=== PATIENT | female | born 1990 | race Caucasian/White ===

== ENCOUNTER 2018-06-20 04:48 | Inpatient (IN) ==
[2018-06-20] MEDS ORDERED: RINGER'S SOLUTION,LACTATED 1,000 ML IV PRN ×2 (05:30)
[2018-06-20] MEDS ORDERED: OXYTOCIN 20 UNITS in RINGER'S SOLUTION,LACTATED 1,000 ML IV ONE (05:30)
[2018-06-20] MEDS ORDERED: ceFAZolin SODIUM/DEXTROSE,ISO 2 GM/50 ML BAG IV ONE (05:30)
--- NOTE | 2018-06-20 06:53 | ANES ---
Anesthesia Pre Procedure Eval HOME MEDICATIONS [id number] 400 mcg-om3 35 mg-dha 25 mg-epa 5 mg-fish oil chewable tablet 2 tab PO .daily tab 02/14/18 [Last Taken Unknown] ranitidine 150 mg tablet 150 mg PO DAILY 02/14/18 [Last Taken Unknown] ferrous sulfate 325 mg (65 mg iron) tablet 325 mg PO BID tab 03/29/18 [Last Taken Unknown] Allergies/Adverse Reactions: Allergies Allergy/AdvReac Type Severity Reaction Status Date / Time Penicillins Allergy Severe Shortness Verified 06/07/18 15:21 of Breath, hives Sulfa (Sulfonamide AdvReac upset Verified 06/07/18 15:21 Antibiotics) stomach - Planned Procedure Planned Procedure: Repeat , poss. Abdominal Scar Revision Medication List Reviewed:: Yes Allergies Verified: Yes Medical History (Last Reviewed 06/20/18 @ 06:51 by Juan Bee CRNA) Body piercing Headache Onset Date: ~01/14/14 spinal headache after delivery PUPPP (pruritic urticarial papules and plaques of ) Onset Date: ~2013 Tattoos Wears glasses Anemia Onset Date: Unknown on set high school- w/ 11/30/17 Coagulation defect Onset Date: ~03/2013 Heterozygous MTHFR Chorioamnionitis Onset Date: 01/14/14 Surgical History (Last Reviewed 06/20/18 @ 06:51 by Juan Bee CRNA) History of tonsillectomy and adenoidectomy Onset Date: ~2007 Hx laparoscopic cholecystectomy Onset Date: 12/18/15 Previous section Onset Date: 01/14/14 Arrest of dilation, chorioamnionitis Family History (Last Reviewed 06/20/18 @ 06:52 by Juan Bee CRNA) Father Alive and well Mother Hypothyroidism DVT (deep venous thrombosis) Pituitary tumor Hx of vein stripping Grandmother Endometriosis Maternal DVT (deep venous thrombosis) Maternal Kidney transplant recipient maternal Grandmother Hypothyroidism CAD (coronary artery disease) - Family Anesthesia History Family History:: no untoward family reactions to anesthesia, no familial bleeding tendencies, no family history of clotting disorders, no family history of premature - Airway/Neck/Teeth Within Normal Limits:: Yes Teeth Condition: Intact Neck Exam: non-tender, full range of motion, normal alignment Mallampatti Score: 2 Thyromental (T-M) distance: > 6 cm Mandibulo Hyoid distance: > 3 cm - Respiratory Respiratory: chest non-tender, lungs clear Smoking Status: Never smoker Sleep Apnea currently treated: No Sleep Apnea by current assessment: No - Cardiovascular Patient History - Cardiac/Respiratory: No pertinent hx Tolerates Activity: Good Heart Sounds: S1 & S2, Regular - Anesthesia Assessment and Plan ASA Class: PS, II Anesthesia Type Plan: Block - Bilateral TAP block for post op pain relief, Spinal Planned difficult intubation/equipment available: No
--- NOTE | 2018-06-20 09:04 | OR ---
Operative Report - Dictated Report Narrative: Indication: 27-year-old 2 para 1 with prior section presents to labor and delivery in labor with repeat section planned Pre Operative Diagnosis: 39-1/7-week intrauterine . Prior section. Early labor. Post Operative Diagnosis: Same. Procedure: Repeat low transverse section. Surgeon: Kamini Washington DO Adult Literacy Teacher: OR staff Anesthesia: Spinal TAP block Estimated Blood Loss: 200 mL Urine Output: 500 mL clear urine Fluids Replacement: 1200 mL of crystalloid Drains: Prakash to gravity Surgical Complications: None Specimens: Placenta to freezer Findings: Male born at 0759 on 06/20/2020 with Apgars 9 and 9, weighing 4512 g in cephalic presentation. Normal uterus, tubes, ovaries Technique: The patient was taken to the operating room and placed in dorsal supine position with a left lateral tilt. After adequate spinal anesthesia, prakash catheter inserted, SCDs placed, and 2 g of Ancef given preoperatively, the abdominal cavity was entered using sharp and blunt dissection. Two rolled laps were placed in the pericolic gutters on either side of the uterus. A transverse incision was made in the lower uterine segment and extended laterally and upwardly with digital traction. Clear fluid was noted upon amniotomy. The infant was delivered with some difficulty. Vacuum was applied one time to the vertex to attempt to navigate through the hysterotomy. Maximum pressure of the vacuum was 500 mmHg with one pop-off. No further applications were needed as the vertex cleared the hysterotomy. The cord was clamped and cut and infant was handed off to awaiting fourth hand. The placenta was allowed to deliver spontaneously. The uterus was cleared of clot and debris. Uterine incision was closed with 0 Vicryl using a running locked stitch. A second imbricating layer was placed. Excellent hemostasis was noted. The rolled laps were removed from the abdominal cavitiy. The peritoneum was closed with a running 3-0 Monocryl. 0 Vicryl was used to approximate the rectus and p yramidalis muscles. The fascia was closed with a running 0 Vicryl. The subcutaneous layer was closed with a running 3-0 Monocryl. The same suture was used to approximate the subdermal layer. The skin was closed with a running 4-0 Monocryl and Dermabond. Sponge, lap, needle, and instrument count were correct x 2. Disposition: To post anesthesia care unit in good condition History for MU Definition: * The number of deliveries resulting in a live the patient experienced prior to current hospitalization * The previous delivery of live twins or any live multiple gestation is considered one live event. *If primagravida or nulliparous is documented select zero for the number of previous live births. Live Events: 1
--- NOTE | 2018-06-20 09:18 | ANES ---
Anesthesia Procedure Note Procedure Note: ANESTHESIA PROCEDURE NOTE Date of Procedure: [06/20/2018 Time of procedure: 09 100 a.m. Performed by: TONJA Dobson CRNA, MSN Cloth Finishing Range Operator Chief: Marianna Clark RN. Preprocedure diagnosis: Post section pain. Post procedure diagnosis: Same. Procedure: Bilateral TAP block Indications: Post section pain relief. Findings: See below. Details of the procedure: The patient was brought to PACU and placed in the supine position. The patient was prepped with chlorhexidine and using ultrasound guidance the 3 abdominal muscular planes were identified and lidocaine 1% was infiltrated to the skin of the intended injection site. Under ultrasound guidance the the internal oblique and transverse this abdominis muscle layers were approached with visualization of a 4 inch block needle until the tip of the needle rested in the plane between the muscles. 25 mL bupivacaine 0.5% with 1-200,000 epinephrine was injected and the procedure was repeated on the other side. Please see radiology/ultrasound report for details and images of the procedure. EBL: 0 Fluids: N/A. Specimen: N/A. Post procedure condition: The patient tolerated the procedure well. No complications were noted. Thank you for this consultation. Juan Bee CRNA, ARNP, MSN
[2018-06-20] MEDS ORDERED: SENNOSIDES 8.6 MG TABLET PO PRN (09:19)
[2018-06-20] MEDS ORDERED: BISACODYL 10 MG SUPP.RECT RC PRN (09:19)
[2018-06-20] MEDS ORDERED: oxyCODONE HCL/ACETAMINOPHEN 1 TAB TABLET PO PRN (09:19)
[2018-06-20] MEDS ORDERED: SIMETHICONE 80 MG TAB.CHEW PO PRN (09:19)
[2018-06-20] MEDS ORDERED: ONDANSETRON HCL/PF 2 MG/ML VIAL IV PRN (09:19)
--- NOTE | 2018-06-20 09:19 | ANES ---
Post Anesthesia Discharge - Transfer of Care Transfer of Care handoff given to nurse: Yes - Discharge from PACU Discharge from PACU when meets criteria: Yes - Alert and comfortable
--- NOTE | 2018-06-20 09:26 | ANES ---
Post Anesthesia Assessment - Vital Signs Vitals: Last Vital Signs Temp 36.4 C 06/20/18 09:20 Pulse 92 06/20/18 09:20 Resp 18 06/20/18 09:20 BP 137/56 06/20/18 09:20 Pulse Ox 97 06/20/18 09:20 Airway Patency: Normal - Mental Status Level Of Consciousness: Awake, Alert, Appropriate - Pain Level Pain Score: 0 - N/V Assessment Nausea/Vomiting Presence: None Dehydration:: No
[2018-06-20] MEDS: oxyCODONE HCL/ACETAMINOPHEN 1 TAB TABLET PO PRN ×3 (09:48→22:36)
[2018-06-20] MEDS: IBUPROFEN 800 MG TABLET PO PRN ×3 (09:48→22:36)
[2018-06-20] MEDS: ENOXAPARIN SODIUM 40 MG/0.4 ML SYRG SC SCH (16:35)
[2018-06-20] MEDS: DOCUSATE SODIUM 100 MG CAPSULE PO SCH (21:11)
[2018-06-21] MEDS: IBUPROFEN 800 MG TABLET PO PRN ×2 (06:49→16:42)
[2018-06-21] MEDS: DOCUSATE SODIUM 100 MG CAPSULE PO SCH ×2 (08:43→20:58)
[2018-06-21] MEDS: oxyCODONE HCL/ACETAMINOPHEN 1 TAB TABLET PO PRN ×3 (09:36→20:58)
--- NOTE | 2018-06-21 11:08 | PN ---
Subjective - Date and Time Seen Date: 06/21/18 Subjective Narrative: Post op day 1, s/p repeat c/s doing well. BP mildly elevated, but asymptomatic. ambulating and tolerating diet well. voided. pain controlled. lochia normal. breast feeding. Objective - Vitals Vitals: Last Vital Signs Temp 37 C 06/21/18 09:45 Pulse 98 06/21/18 06:49 Resp 18 06/21/18 06:49 BP 135/91 H 06/21/18 06:49 Pulse Ox 99 06/21/18 06:49 - Exam Constitutional: Present: Alert, Oriented x3, Cooperative Respiratory: Present: no respiratory distress Abdomen: Present: soft, nontender, nondistended, other - fundus firm at the umbilicus. Incision intact with Dermabond. Extremity: Present: normal range of motion, no calf tenderness, lower extremity edema - 1+ bilaterally, pedal edema Skin Exam: Present: normal color, warm/dry, no cyanosis Appearance: Present: appropriate appearance Eye contact: Present: cooperative, good eye contact, normal speech Cauti Physician Documentation - Urinary Catheter Management Urethral (Diaz) Date of Insertion: 06/20/18 Time of Insertion: 07:25 Assessment/Plan Plan Narrative: A: Post op day 1, s/p repeat c/s, stable and well. Plan: routine post op and care. ambulation encouraged. Sanam Kurtz MD
[2018-06-21] MEDS: ENOXAPARIN SODIUM 40 MG/0.4 ML SYRG SC SCH (16:42)
[2018-06-22] MEDS: oxyCODONE HCL/ACETAMINOPHEN 1 TAB TABLET PO PRN ×3 (00:11→21:24)
[2018-06-22] MEDS: IBUPROFEN 800 MG TABLET PO PRN ×2 (00:11→21:24)
[2018-06-22] MEDS: DOCUSATE SODIUM 100 MG CAPSULE PO SCH ×2 (09:25→21:53)
--- NOTE | 2018-06-22 09:25 | PN ---
Subjective - Date and Time Seen Date: 06/22/18 Subjective Narrative: Post op day 2, s/p repeat c/s. no complaints. BP normal. ambulating without difficulty. . normal lochia. Objective - Vitals Vitals: Last Vital Signs Temp 36.5 C 06/22/18 07:54 Pulse 93 06/22/18 07:54 Resp 20 06/22/18 07:54 BP 136/86 06/22/18 07:54 Pulse Ox 98 06/22/18 00:35 - Exam Constitutional: Present: Alert, Oriented x3, Cooperative Respiratory: Present: no respiratory distress Cardiovascular/Chest: Present: normal peripheral pulses Abdomen: Present: soft, nontender, nondistended, other - fundus firm and below umbilicus Extremity: Present: normal range of motion, no calf tenderness, lower extremity edema - 1+ bilaterally, pedal edema Skin Exam: Present: normal color, warm/dry, no cyanosis Appearance: Present: appropriate appearance Eye contact: Present: cooperative, good eye contact, normal speech Cauti Physician Documentation - Urinary Catheter Management Urethral (Diaz) Date of Insertion: 06/20/18 Time of Insertion: 07:25 Assessment/Plan Plan Narrative: A: Post op day 2, s/p repeat c/s, stable and well. plan: routine post op and care. abdominal binder to help support low abdominal muscles. ambulation encouraged. Sanam Kurtz MD
[2018-06-22] MEDS: ENOXAPARIN SODIUM 40 MG/0.4 ML SYRG SC SCH (16:53)
[2018-06-23] MEDS: oxyCODONE HCL/ACETAMINOPHEN 1 TAB TABLET PO PRN ×2 (00:48→11:06)
[2018-06-23 07:36] VITALS: BP 128/88
--- NOTE | 2018-06-23 09:08 | PN ---
Subjective - Date and Time Seen Date: 06/23/18 Time: 09:07 Objective - Vitals Vitals: Last Vital Signs Temp 36.8 C 06/23/18 06:55 Pulse 84 06/23/18 06:55 Resp 18 06/23/18 06:55 BP 128/88 06/23/18 06:55 Pulse Ox 98 06/23/18 06:55 Patient denies complaints. Pain well controlled. Lochia wnl. Bottle feeding Abdomen - soft, appropriately tender Incision -clean, dry, intact uterus - firm, at umbilicus -3 no calf tenderness Impression: Post op day 3 s/p repeat section Plan: Routine discharge instructions Cauti Physician Documentation - Urinary Catheter Management Urethral (Diaz) Date of Insertion: 06/20/18 Time of Insertion: 07:25
[2018-06-23] MEDS: DOCUSATE SODIUM 100 MG CAPSULE PO SCH (09:44)
[2018-06-23] MEDS: IBUPROFEN 800 MG TABLET PO PRN (11:07)
== END 2018-06-23 11:30 | disposition home or self-care (01) | DRG 788 ==
LOC: MS 04:48
PROVIDERS: ADMIT Obstetrics & Gynecology; ATTEND Obstetrics & Gynecology
CPT/HCPCS: 59025